=== PATIENT | male | born 1960 | race Caucasian/White ===

== ENCOUNTER 2018-11-28 05:58 | Inpatient (IN) | payer OTHER ==
[2018-11-28] MEDS ORDERED: CEFAZOLIN 2 GM/50 ML (PMX) 50 ML IVPB (06:00)
[2018-11-28] MEDS: LACTATED RINGER'S 1,000 ML IV (07:41)
[2018-11-28] MEDS ORDERED: SUCCINYLCHOLINE CHLORIDE 100 MG/5 ML SYG IV (08:00)
[2018-11-28] MEDS ORDERED: DESFLURANE 15 MIN (08:00)
[2018-11-28] MEDS ORDERED: ROCURONIUM 50 MG INJ ×2 (08:00→08:03)
[2018-11-28] MEDS ORDERED: MIDAZOLAM 1 MG/ML 2 ML INJ (08:03)
[2018-11-28] MEDS ORDERED: PROPOFOL 20 ML (08:03)
[2018-11-28] MEDS ORDERED: LIDOCAINE 1% (MDV) 20 ML INJ (08:04)
[2018-11-28] MEDS ORDERED: CEFAZOLIN 1 GM INJ (08:08)
[2018-11-28] MEDS ORDERED: ONDANSETRON 4 MG INJ (08:10)
[2018-11-28] MEDS ORDERED: DEXAMETHASONE 4 MG/ML 5 ML INJ (08:10)
[2018-11-28] MEDS: SURGIFOAM POWDER 1 GM KIT (08:55)
[2018-11-28] MEDS: THROMBIN (BOVINE) 5,000 UNIT VIAL TP ×2 (08:55→17:09)
[2018-11-28] MEDS: HEPARIN 1000 UNITS/ML 10 ML INJ (08:55)
[2018-11-28] MEDS: GELATIN SIZE 100 SPONGE (08:55)
[2018-11-28] MEDS: BUPIVACAINE 0.5%/EPI (SDV) 30 ML INJ (08:55)
[2018-11-28] MEDS: CEFAZOLIN 1 GM INJ (08:55)
[2018-11-28] MEDS ORDERED: FUROSEMIDE 20 MG INJ (10:16)
[2018-11-28] MEDS ORDERED: ROPIVACAINE 0.5 % 30 ML VIAL (12:36)
[2018-11-28] MEDS ORDERED: GELATIN SIZE 100 SPONGE (13:25)
[2018-11-28] MEDS ORDERED: HYDROmorphONE 2 MG/ML SYG (16:02)
[2018-11-28] MEDS ORDERED: SURGIFOAM POWDER 1 GM KIT (16:57)
[2018-11-28] MEDS ORDERED: SUGAMMADEX SODIUM 200 MG/2 ML VIAL IV (17:26)
[2018-11-28] MEDS ORDERED: HYDROmorphONE 1 MG/5 ML IV SYRINGE IV (18:24)
[2018-11-28] MEDS: HYDROmorphONE 1 MG/5 ML IV SYRINGE IV ×4 (18:27→19:17)
[2018-11-28 18:28] LABS: HEMATOCRIT 35.4 % (42.0-52.0); HEMOGLOBIN 11.6 g/dl (14.0-18.0)
[2018-11-28] MEDS ORDERED: NACL 0.9% 3 ML SYG IV (18:30)
[2018-11-28] MEDS ORDERED: NALOXONE (0.4 MG/ML) INJ IV (18:30)
[2018-11-28] MEDS ORDERED: ACETAMINOPHEN 325 MG TAB PO (18:30)
[2018-11-28] MEDS ORDERED: HYDROCODONE/APAP (5/325) TAB PO (18:30)
[2018-11-28] MEDS ORDERED: AL HYDROX/MG HYDROX/SIMETH 30 ML CUP PO (18:30)
[2018-11-28] MEDS ORDERED: PROCHLORPERAZINE 10 MG TAB PO (18:30)
[2018-11-28] MEDS ORDERED: ONDANSETRON 4 MG INJ IV (18:30)
[2018-11-28] MEDS: HYDROmorphONE 0.2 MG/ML PCA IV (18:54)
[2018-11-28] MEDS: PREGABALIN 50 MG CAP PO (20:50)
[2018-11-28] MEDS: D5W-0.45 NACL + KCL 20 MEQ 1,000 ML IV (20:50)
[2018-11-28] MEDS: GEMFIBROZIL 600 MG TAB PO (20:50)
[2018-11-28 22:54] LABS: IMMEDIATE SPIN CROSSMATCH 1 2
[2018-11-28] MEDS: CEFAZOLIN 1 GM/50 ML (PMX) 50 ML IVPB (23:59)
[2018-11-29] MEDS: D5W-0.45 NACL + KCL 20 MEQ 1,000 ML IV ×2 (04:30→11:11)
[2018-11-29] MEDS: ACETAMINOPHEN 1000MG/100ML IV 100 ML IVPB ×2 (05:03)
[2018-11-29] MEDS: CEFAZOLIN 1 GM/50 ML (PMX) 50 ML IVPB ×3 (05:03→17:42)
[2018-11-29 05:22] LABS: ADD MAN DIFF? NO
[2018-11-29 05:30] LABS: BASOPHILS % 0.1 % (0.0-2.0); HEMATOCRIT 37.1 % (42.0-52.0); HEMOGLOBIN 12.5 g/dl (14.0-18.0); LYMPHOCYTES # 1.3 10^3/ul (0.8-2.9); MEAN CORPUSCULAR HEMOGLOBIN 30.5 pg (29.0-33.0); MEAN CORPUSCULAR HGB CONC 33.7 g/dl (32.0-37.0); MEAN CORPUSCULAR VOLUME 90.5 fl (82.0-101.0); MEAN PLATELET VOLUME 10.2 fl (7.4-10.4); MONOCYTE # 1.2 10^3/ul (0.3-0.9); MONOCYTES % 10.6 % (0.0-11.0); NEUTROPHIL # 8.4 10^3/ul (1.6-7.5); NEUTROPHILS % 76.9 % (39.0-77.0); PLATELET COUNT 181 10^3/UL (140-415); RED CELL DISTRIBUTION WIDTH 13.1 % (11.5-14.5)
[2018-11-29 05:30] LABS: WHITE BLOOD COUNT 10.9 10^3/ul (4.8-10.8)
[2018-11-29 06:22] LABS: ANION GAP 6 (5-13); BLOOD UREA NITROGEN 14 mg/dl (7-20); CALCIUM 7.6 mg/dl (8.4-10.2); CARBON DIOXIDE 25 mmol/L (21-31); CHLORIDE 106 mmol/L (97-110); CREATININE 0.72 mg/dl (0.61-1.24); Estimated GFR > 60 mL/min (>60); GLUCOSE 142 mg/dl (70-220); POTASSIUM 4.1 mmol/L (3.5-5.1); SODIUM 137 mmol/L (135-144)
[2018-11-29] MEDS: DOCUSATE SODIUM 100 MG CAP PO ×2 (08:25→21:01)
[2018-11-29] MEDS: GEMFIBROZIL 600 MG TAB PO ×3 (08:25→21:01)
[2018-11-29] MEDS: HYDROCODONE/APAP (5/325) TAB PO ×2 (11:11→23:31)
[2018-11-29] MEDS: AL HYDROX/MG HYDROX/SIMETH 30 ML CUP PO (17:40)
[2018-11-29] MEDS: FAMOTIDINE 20 MG TAB NGT ×2 (17:40→21:01)
[2018-11-29] MEDS: PREGABALIN 50 MG CAP PO (21:01)
[2018-11-29] MEDS: HYDROmorphONE 0.5 MG/0.5 ML SYG IV (21:07)
[2018-11-30] MEDS: HYDROCODONE/APAP (5/325) TAB PO ×3 (04:50→18:09)
[2018-11-30] MEDS: GEMFIBROZIL 600 MG TAB PO ×3 (08:30→20:08)
[2018-11-30] MEDS: FAMOTIDINE 20 MG TAB NGT ×2 (08:30→20:08)
[2018-11-30] MEDS: DOCUSATE SODIUM 100 MG CAP PO ×2 (08:30→20:08)
[2018-11-30] MEDS: PREGABALIN 50 MG CAP PO (20:08)
[2018-12-01] MEDS: HYDROCODONE/APAP (5/325) TAB PO ×3 (01:28→09:57)
[2018-12-01] MEDS: DOCUSATE SODIUM 100 MG CAP PO (08:37)
[2018-12-01] MEDS: FAMOTIDINE 20 MG TAB NGT (08:37)
[2018-12-01] MEDS: GEMFIBROZIL 600 MG TAB PO (08:37)
== END 2018-12-01 11:05 | disposition home or self-care (01) | DRG 454 ==
LOC: REC 05:58 → MS1 20:00
PROC: 0SG0070 Fusion of Lumbar Vertebral Joint with Autologous Tissue Substitute, Anterior Approach, Anterior Column, Open Approach (ICD-10-PCS; principal; 2018-11-28 08:00)
PROC: 0SG30K1 Fusion of Lumbosacral Joint with Nonautologous Tissue Substitute, Posterior Approach, Posterior Column, Open Approach (ICD-10-PCS; 2018-11-28 08:00)
PROC: 0SG30A0 Fusion of Lumbosacral Joint with Interbody Fusion Device, Anterior Approach, Anterior Column, Open Approach (ICD-10-PCS; 2018-11-28 08:00)
PROC: 0SG00J1 Fusion of Lumbar Vertebral Joint with Synthetic Substitute, Posterior Approach, Posterior Column, Open Approach (ICD-10-PCS; 2018-11-28 08:00)
PROC: 0SB20ZZ Excision of Lumbar Vertebral Disc, Open Approach (ICD-10-PCS; 2018-11-28 08:00)
PROC: 30233N1 Transfusion of Nonautologous Red Blood Cells into Peripheral Vein, Percutaneous Approach (ICD-10-PCS; 2018-11-28 08:00)
DX: M43.16 Spondylolisthesis, lumbar region (principal); D62 Acute posthemorrhagic anemia; M48.062 Spinal stenosis, lumbar region with neurogenic claudication; M51.17 Intervertebral disc disorders with radiculopathy, lumbosacral region; M48.07 Spinal stenosis, lumbosacral region; M21.372 Foot drop, left foot; R73.9 Hyperglycemia, unspecified; K21.9 Gastro-esophageal reflux disease without esophagitis
CPT/HCPCS: 36430; 71045; 72114; 80048; 85014; 85018; 85025; 86850; 86900; 86901; 86920; 87086; 97116; 97163; 97530